=== PATIENT | male | born 1965 | race Caucasian/White ===

== ENCOUNTER → 2017-09-01 | Day surgery (SDC) | payer BC, OTHER ==
[2017-08-26 15:23] VITALS: BMI 35.0
[~2017-09-01] VITALS: Ht 188 cm; Wt 122.7 kg
[~2017-09-01] MED LIST: CYAN1SUB13 SL; ETAN50IN2 SC; FOLI1TAB7 PO; LIDOCAINE HCL 2% 2 ML VIAL (20MG/ML) ONE; METHOTREXATE SC; MULT-506 PO; OMEG100046 PO; ONDANSETRON INJ 2 MG/ML 2 ML VIAL ONE; OYST500T47 PO; PANT40TA PO; PREG1CAP28 PO; PROPOFOL IV EMULSION 10 MG/ML 20 ML VIAL IV ONE; SODIUM CHLORIDE 0.9% 500ML 500 ML IV ONE
[2017-09-01 08:10] VITALS: Ht 188 cm; Wt 122.7 kg
[2017-09-01 08:16] VITALS: TEMP 37
--- NOTE | 2017-09-01 08:40 | Endo History and Physical ---
History & Physical Date of Service: Sep 01, 2017. Chief Complaint: bloating hx bypass surgery Referring Physician: dr. manzano History of Present Illness bloating/heartburn Past Surgical History Hx Cardiac Surgery: No Hx Internal Defibrillator: No Hx Pacemaker: No Hx Abdominal Surgery: Yes (GASTRIC BYPASS, JAMES) Hx Post-Op Nausea and Vomiting: No Hx Cancer Surgery: No Hx Thoracic Surgery: No Hx Orthopedic: Yes (RT KNEE ARTHROSCOPY X 2, LEFT ULNAR NERVE TRANSP AND CTR) Hx Urinary Tract Surgery: No Family History None Social History Smoking Status: Former Smoker Hx Substance Use: No Hx Alcohol Use: Yes (RARELY) Allergies Coded Allergies: NO KNOWN DRUG ALLERGIES (Verified Allergy, Unknown, ., 08/26/17) Current Medications Reported Home Medications Medications Dose Route/Sig Max Daily Dose Days Date Category B-12 (Cyanocobalamin) 1,000 Mcg Sub 1 Dose SL [id number] 08/26/17 Reported Protonix (Pantoprazole Sodium) 40 Mg Tab 40 Mg PO QAM 08/26/17 Reported [place] 3 ([place]-3 Fatty Acids) 1 Cap Cap 1 Cap PO DAILY 08/26/17 Reported Calcium (Oyster Shell) 500 Mg Tab 1 Tab PO DAILY 08/26/17 Reported Multivitamin (Multivitamins) Tab 1 Tab PO DAILY 08/26/17 Reported Lyrica (Pregabalin) 75 Mg Cap 75 Mg PO QAM 08/26/17 Reported [Methotrexate] 1 Dose SC WK 08/26/17 Reported Enbrel (Etanercept) 50 Mg/Ml Inj 1 Dose SC WK 08/26/17 Reported Folvite (Folic Acid) 1 Mg Tab 1 Mg PO QAM 08/26/17 Reported Vital Signs Weight (Kilograms): 122.73 Height (Feet): 6 Height (Inches): 2 Date Time Temp Pulse Resp B/P (MAP) Pulse Ox O2 Delivery O2 Flow Rate FiO2 09/01/17 08:16 37.0 62 18 150/91 (110) 97 Room Air Physical Exam General Appearance: no apparent distress Respiratory/Chest: Auscultation: breath sounds normal Cardiovascular: Heart Auscultation: RRR Abdomen: Inspection & Palpation: soft Liver: non-tender Assessment and Plan stable for EGD
--- NOTE | 2017-09-01 09:01 | Discharge Instructions ---
Endoscopy Patient Instructions Date / Procedure(s) Performed Sep 01, 2017. EGD Allergy Information Coded Allergies: NO KNOWN DRUG ALLERGIES (Verified Allergy, Unknown, ., 08/26/17) Discharge Date / Findings Sep 01, 2017. Normal post gastric bypass anatomy/ stomach biopsies obtained. Provider Instructions Activity Restrictions - No exercising or heavy lifting for 24 hours. - Do not drink alcohol the day of the procedure. - Do not drive a car or operate machinery until the day after the procedure. - Do not make any important decisions or sign important papers in 24 hours after the procedure. Following Day: - Return to full activity which may include returning to work/school. Diet Start your diet with liquids and light foods (jello, soup, juice, toast). Then eat your usual diet if not nauseated. Treatment For Common After Affects For mild abdominal pain, bloating, or excessive gas: - Rest - Eat lightly - Lie on right side Follow-Up Information Follow-up with dr. manzano as scheduled Anesthesia Information What You Should Know You have had a procedure that required some medicine to reduce anxiety and discomfort. This treatment is called moderate sedation. After receiving the treatment, you may be sleepy, but you will be able to breathe on your own. The effects of the treatment may last for several hours. Follow these instructions along with Activity/Diet recommendations noted above: * Do NOT do anything where dizziness or clumsiness would be dangerous. * Rest quietly at home today, then you can be up and about tomorrow. * Have a responsible person stay with you the rest of today. * You may have had an I.V. today. If so, you may take the dressing off later today. Recommendations Call your doctor if: * Trouble breathing * Continuous vomiting for more than 24 hours * Temperature above 101 degrees * Severe abdominal pain or bloating * Pain not relieved by pain medicine ordered * There is increased drainage or redness from any incision * A large amount of rectal bleeding greater than 2-3 tablespoons. (If you had a polyp/s removed or have hemorrhoids, a small amount of blood - from the rectum is to be expected.) * You have any unanswered questions or concerns. IN THE EVENT OF A SERIOUS EMERGENCY, GO TO THE NEAREST EMERGENCY ROOM Your discharge instructions were prepared by provider Miles Bahena. Patient Instructions Signature Page Mayito Ruiz Patient (or Guardian) Signature/Date: I have read and understand the instructions given to me by my caregivers. Caregiver/RN/Doctor Signature/Date: The above-named patient and/or guardian has received patient instructions on this date. + Original Patient Signature Page (only) stays with chart. Please make copy for patient.
--- NOTE | 2017-09-01 09:07 | GI REPORT ---
Procedure Date: 09/01/2017 8:13 AM Procedure: Upper GI endoscopy Indications: Dyspepsia, Indigestion, Abdominal bloating Medicines: See the Anesthesia note for documentation of the administered medications Complications: No immediate complications. Estimated Blood Loss: Estimated blood loss was minimal. Procedure: Pre-Anesthesia Assessment: - Prior to the procedure, a History and Physical was performed, and patient medications, allergies and sensitivities were reviewed. The patient's tolerance of previous anesthesia was reviewed. - The risks and benefits of the procedure and the sedation options and risks were discussed with the patient. All questions were answered and informed consent was obtained. - Patient identification and proposed procedure were verified prior to the procedure by the physician and the nurse. The procedure was verified in the pre-procedure area. - Pre-procedure physical examination revealed no contraindications to sedation. - After reviewing the risks and benefits, the patient was deemed in satisfactory condition to undergo the procedure. After obtaining informed consent, the endoscope was passed under direct vision. Throughout the procedure, the patient's blood pressure, pulse, and oxygen saturations were monitored continuously. The scope was introduced through the mouth, and advanced to the afferent and efferent jejunal loops. The upper GI endoscopy was accomplished without difficulty. The patient tolerated the procedure well. Findings: The esophagus was normal. Evidence of a gastric bypass was found. A gastric pouch with a normal size was found. The staple line appeared intact. The gastrojejunal anastomosis was characterized by healthy appearing mucosa. The jejunojejunal anastomosis was characterized by healthy appearing mucosa. Biopsies were taken with a cold forceps for Helicobacter pylori testing. Verification of patient identification for the specimen was done by the physician and nurse using the patient's name and medical record number. Estimated blood loss was minimal. The examined jejunum was normal. Impression: - Normal esophagus. - Gastric bypass with a normal-sized pouch and intact staple line. Gastrojejunal anastomosis characterized by healthy appearing mucosa. Biopsied. - Normal examined blind loop and efferent jejunum. - No ulcers seen. Recommendation: - Await pathology results. - Discharge patient to home. Miles Bahena M.D. Miles Bahena MD 09/01/2017 9:06:26 AM This report has been signed electronically. Note Initiated On: 09/01/2017 8:13 AM I attest to the content of the Intraoperative Record and orders documented therein, exceptions below
--- NOTE | 2017-09-01 09:16 | Anesthesiology Progress Note ---
Anesthesia Post Op Note Date & Time Sep 01, 2017 at 09:16 Vital Signs Pain Intensity: 0 Vital Signs Past 12 Hours Date Time Temp Pulse Resp B/P (MAP) Pulse Ox O2 Delivery O2 Flow Rate FiO2 09/01/17 09:04 53 18 107/73 (84) 97 Room Air 09/01/17 08:16 37.0 62 18 150/91 (110) 97 Room Air Notes Mental Status: alert / awake / arousable, participated in evaluation Pt Amnestic to Procedure: Yes Nausea / Vomiting: adequately controlled Pain: adequately controlled Airway Patency, RR, SpO2: stable & adequate BP & HR: stable & adequate Hydration State: stable & adequate Anesthetic Complications: no major complications apparent Awake. Doing well. VSS.
[2017-09-01 09:35] VITALS: BP 132/86; PULSE 51; O2SAT 98
== END | disposition home or self-care (01) ==
LOC: C.GI 07:47
PROVIDERS: ATTEND Internal Medicine Gastroenterology
DX: R14.0 Abdominal distension (gaseous) (principal); Z98.84 Bariatric surgery status; Z87.891 Personal history of nicotine dependence; Z79.899 Other long term (current) drug therapy